=== PATIENT | male | born 1980 | race Two or more races ===

== ENCOUNTER 2024-04-28 20:35 | Emergency (ER) | payer OTHER ==
[~2024-04-28] VITALS: Ht 170.2 cm; Wt 81.8 kg
[2024-04-28] MEDS: diphenhdrAMINE HCL 50 MG/1 ML VL ONE (20:46)
[2024-04-28] MEDS: FAMOTIDINE (10MG/ML) 2ML VL IV ONE (20:47)
[2024-04-28] MEDS: ONDANSETRON HCL 4 MG/2 ML VIAL IV ONE (20:47)
[2024-04-28] MEDS: EPINEPHrine HCL 1 MG/1 ML AMP SC ONE (20:47)
[2024-04-28] MEDS: DexAMETHasone SOD PHOS 10MG/1ML VIAL INJ IV ONE (20:47)
[2024-04-28] MEDS: EPINEPHrine HCL 1 MG/1 ML AMP ONE (20:48)
[2024-04-28] MEDS: SODIUM CHLORIDE 0.9% 1,000 ML IV ONE (21:02)
[2024-04-28] MEDS: MORPHINE SULFATE 4 MG/ML SYR/VIAL IV ONE (21:15)
[2024-04-28 21:17] VITALS: PULSE 75; RESP 14; O2SAT 97
[2024-04-28 21:36] LABS: Basophils # (auto) 0 10 ^3/uL (0-0.2); Basophils % (auto) 0.1 % (0.0-2.0); Eosinophils # (auto) 0 10 ^3/uL (0-0.8); Eosinophils % (auto) 0.3 % (0.0-7.0); Hematocrit 46.7 % (41.0-53.0); Hemoglobin 16.5 g/dL (13.5-17.5); Lymphocytes # (auto) 1.2 10 ^3/uL (0.4-5.4); Mean Corpuscular Hgb Conc. 35.4 g/dL (32.0-36.0); Mean Corpuscular Volume 96.2 fL (80.0-100.0); Monocytes # (auto) 0.2 10 ^3/uL (0-1.3); Monocytes % (auto) 1.3 % (0.0-12.0); Neutrophils # (auto) 10.8 10 ^3/uL (1.6-8.6); Neutrophils % (auto) 88.3 % (37.0-80.0); Nucleated Red Blood Cells % 0.1 %; Platelet Count (auto) 215 10^3/uL (140-450); Red Blood Cells 4.85 10^6/uL (4.5-5.90); Red Cell Distribution Width 13.8 % (11.8-14.3); White Blood Cell 12.2 10^3/uL (4.4-10.8)
[2024-04-28 21:46] LABS: Alanine Aminotransferase 43 U/L (7-40); Albumin 4.9 g/dL (3.2-4.8); Alkaline Phosphatase 78 U/L (46-116); Anion Gap 11 (5-15); Aspartate Aminotransferase 29 U/L (13-40); BUN/Creatinine Ratio 10.3 (10.0-20.0); Blood Urea Nitrogen 11 mg/dL (9-23); Calcium 9.4 mg/dL (8.7-10.4); Carbon Dioxide 18 mmol/L (20-30); Chloride 110 mmol/L (98-107); Glucose 107 mg/dL (74-106); Lipase 40 U/L (12-53); Potassium 3.3 mmol/L (3.5-5.1); Sodium 139 mmol/L (136-145)
[2024-04-28 21:47] LABS: Bilirubin, Total 0.6 mg/dL (0.2-1.0); Total Protein 7.6 g/dL (5.7-8.2)
[2024-04-29] MEDS ORDERED: FAMO-161 PO (00:27)
[2024-04-29] MEDS ORDERED: DIPH25TA31 PO (00:27)
[2024-04-29] MEDS ORDERED: ZOFR4T PO (00:27)
[2024-04-29 00:30] VITALS: BP 91/62; PULSE 78; RESP 16; TEMP 98.4; O2SAT 99
[2024-04-29] MEDS: POTASSIUM EFFERVESENT TAB 25 MEQ PO ONE (00:36)
== END 2024-04-29 00:41 | disposition home or self-care (01) ==
LOC: ER 20:35 → EDBD 20:35 → ER 04-29 00:41
DX: T78.49XA Other allergy, initial encounter (principal); R10.13 Epigastric pain; X58.XXXA Exposure to other specified factors, initial encounter
CPT/HCPCS: 36415; 74176; 80053; 83690; 85025; 96361; 96372; 96374; 96375; 99285; J0171; J1100; J1200; J2405; J3490